=== PATIENT | female | born 1955 | race Caucasian/White ===

== ENCOUNTER → 2017-01-24 | Outpatient (CLI) | payer OTHER ==
[~2017-01-24] MED LIST: AMOX500C3 PO; ASPI325T39 PO; ATEN50TA8 PO; CHOL20007 PO; HYDC25 PO; LORA-741 PO; METO25TA3 PO
--- NOTE | 2017-01-27 12:45 | MAMMOGRAPHY REPORT ---
BILATERAL DIGITAL SCREENING MAMMOGRAM WITH CAD: 01/24/2017 CLINICAL HISTORY: Routine screening. Patient has no complaints. TECHNIQUE: Current study was also evaluated with a Computer Aided Detection (CAD) system. Bilatera l CC and MLO views were obtained. COMPARISON: Comparison is made to exams dated: 12/01/2015 mammogram, 10/17/2014 mammogram, 3 mammogram, 11/15/2011 mammogram - [facility], and 11/13/2004 mammogram. BREAST COMPOSITION: The tissue of both breasts is almost entirely fatty. FINDINGS: No suspicious masses, calcifications, or areas of architectural distortion are noted in e ither breast. There has been no significant interval change compared to prior exams. IMPRESSION: ACR BI-RADS CATEGORY 1: NEGATIVE There is no mammographic evidence of malignancy. A 1 year screening mammogram is recommended. The p atient will receive written notification of the results. Approximately 10% of breast cancers are not detected with mammography. A negative mammographic repor t should not delay biopsy if a clinically suggestive mass is present. Anuradha Carvalho M.D. ah/:01/24/2017 16:02:40 Senior Relationship Manager: Heather Yanez RT(R)(M), [facility] letter sent: Normal 1/2 BI-RADS Code: ACR BI-RADS Category 1: Negative
== END | disposition home or self-care (01) ==
LOC: C.MAMM 14:28
PROVIDERS: ATTEND Nurse Practitioner
DX: Z12.31 Encounter for screening mammogram for malignant neoplasm of breast (principal)

== ENCOUNTER → 2017-06-20 | Day surgery (SDC) | payer OTHER ==
[2017-06-09 11:21] VITALS: Ht 167.6 cm; Wt 115.9 kg
[~2017-06-20] VITALS: Ht 167.6 cm; Wt 115.9 kg
[~2017-06-20] MED LIST changes: -ATEN50TA8 PO; -HYDC25 PO; +LIDOCAINE HCL 2% 2 ML VIAL (20MG/ML) ONE; +PROPOFOL IV EMULSION 10 MG/ML 20 ML VIAL IV ONE; +SODIUM CHLORIDE 0.9% 500ML 500 ML IV ONE
--- NOTE | 2017-06-20 09:29 | Endo History and Physical ---
History & Physical Date of Service: Jun 20, 2017. Chief Complaint: History of colon polyps. Referring Physician: Uli History of Present Illness 61 yo CF who presents for colonoscopy secondary to history of colon polyps. Past Surgical History Hx Cardiac Surgery: No Hx Internal Defibrillator: No Hx Pacemaker: No Hx Abdominal Surgery: No Hx of Implantable Prosthesis: No Hx Post-Op Nausea and Vomiting: No Hx Cancer Surgery: No Hx Thoracic Surgery: No Hx Orthopedic: Yes (BLT TKA) Hx Urinary Tract Surgery: No Family History None Social History Smoking Status: Never Smoker Hx Substance Use: No Hx Alcohol Use: No Allergies Coded Allergies: Latex1 -Allergic Contact Dermititis (Verified Allergy, Mild, RASH, 06/20/17) Current Medications Reported Home Medications Medications Dose Route/Sig Max Daily Dose Days Date Category Toprol-Xl (Metoprolol Succinate) 25 Mg Tabcr 25 Mg PO QAM 06/09/17 Reported Vitamin D3 (Cholecalciferol) 2,000 Unit Tab 1 Tab PO QAM 06/09/17 Reported Ativan (Lorazepam) 0.5 Mg Tab 0.5 Mg PO HS PRN 06/09/17 Reported Aspirin Ec (Aspirin) 325 Mg Tab 325 Mg PO QAM 06/09/17 Reported Amoxil (Amoxicillin) 500 Mg Cap 4 Tabs PO UD PRN 06/09/17 Reported Vital Signs Weight (Kilograms): 115.91 Height (Feet): 5 Height (Inches): 6 Physical Exam General Appearance: WD/WN, no apparent distress Respiratory/Chest: Auscultation: breath sounds normal Cardiovascular: Heart Auscultation: RRR Abdomen: Bowel Sounds: normal Inspection & Palpation: soft, non-distended, no tenderness, guarding & rebound Assessment and Plan Assessment: 61 yo CF who presents for colonoscopy secondary to history of colon polyps. Plan: Proceed with colonoscopy.
--- NOTE | 2017-06-20 10:21 | Discharge Instructions ---
Endoscopy Patient Instructions Date / Procedure(s) Performed Jun 20, 2017. Colonoscopy Allergy Information Coded Allergies: Latex1 -Allergic Contact Dermititis (Verified Allergy, Mild, RASH, 06/20/17) Discharge Date / Findings Jun 20, 2017. Diverticulosis Internal hemorrhoids Medication Instructions Stopped Medication(s): Aspirin OK to resume all medications today as prescribed Reported Home Medications Medications Dose Route/Sig Max Daily Dose Days Date Category Toprol-Xl (Metoprolol Succinate) 25 Mg Tabcr 25 Mg PO QAM 06/09/17 Reported Vitamin D3 (Cholecalciferol) 2,000 Unit Tab 1 Tab PO QAM 06/09/17 Reported Ativan (Lorazepam) 0.5 Mg Tab 0.5 Mg PO HS PRN 06/09/17 Reported Aspirin Ec (Aspirin) 325 Mg Tab 325 Mg PO QAM 06/09/17 Reported Amoxil (Amoxicillin) 500 Mg Cap 4 Tabs PO UD PRN 06/09/17 Reported Provider Instructions Activity Restrictions - No exercising or heavy lifting for 24 hours. - Do not drink alcohol the day of the procedure. - Do not drive a car or operate machinery until the day after the procedure. - Do not make any important decisions or sign important papers in 24 hours after the procedure. Following Day: - Return to full activity which may include returning to work/school. Diet Start your diet with liquids and light foods (jello, soup, juice, toast). Then eat your usual diet if not nauseated. Treatment For Common After Affects For mild abdominal pain, bloating, or excessive gas: - Rest - Eat lightly - Lie on right side Follow-Up Information Follow-up with Eli Mcnally NP as scheduled Anesthesia Information What You Should Know You have had a procedure that required some medicine to reduce anxiety and discomfort. This treatment is called moderate sedation. After receiving the treatment, you may be sleepy, but you will be able to breathe on your own. The effects of the treatment may last for several hours. Follow these instructions along with Activity/Diet recommendations noted above: * Do NOT do anything where dizziness or clumsiness would be dangerous. * Rest quietly at home today, then you can be up and about tomorrow. * Have a responsible person stay with you the rest of today. * You may have had an I.V. today. If so, you may take the dressing off later today. Recommendations Call your doctor if: * Trouble breathing * Continuous vomiting for more than 24 hours * Temperature above 101 degrees * Severe abdominal pain or bloating * Pain not relieved by pain medicine ordered * There is increased drainage or redness from any incision * A large amount of rectal bleeding greater than 2-3 tablespoons. (If you had a polyp/s removed or have hemorrhoids, a small amount of blood - from the rectum is to be expected.) * You have any unanswered questions or concerns. IN THE EVENT OF A SERIOUS EMERGENCY, GO TO THE NEAREST EMERGENCY ROOM Your discharge instructions were prepared by provider Prieto Gordon. Patient Instructions Signature Page Padmini Colunga Patient (or Guardian) Signature/Date: I have read and understand the instructions given to me by my caregivers. Caregiver/RN/Doctor Signature/Date: The above-named patient and/or guardian has received patient instructions on this date. + Original Patient Signature Page (only) stays with chart. Please make copy for patient.
--- NOTE | 2017-06-20 10:28 | GI REPORT ---
Procedure Date: 06/20/2017 9:35 AM Procedure: Colonoscopy Indications: High risk colon cancer surveillance: Personal history of colonic polyps Medicines: Monitored Anesthesia Care Complications: No immediate complications. Estimated Blood Loss: Estimated blood loss: none. Procedure: Pre-Anesthesia Assessment: - Prior to the procedure, a History and Physical was performed, and patient medications and allergies were reviewed. The patient's tolerance of previous anesthesia was also reviewed. The risks and benefits of the procedure and the sedation options and risks were discussed with the patient. All questions were answered, and informed consent was obtained. Prior Anticoagulants: The patient has taken aspirin, last dose was 7 days prior to procedure. ASA Grade Assessment: II - A patient with mild systemic disease. After reviewing the risks and benefits, the patient was deemed in satisfactory condition to undergo the procedure. After I obtained informed consent, the scope was passed under direct vision. Throughout the procedure, the patient's blood pressure, pulse, and oxygen saturations were monitored continuously. The On-site loaner was introduced through the anus and advanced to the terminal ileum. The colonoscopy was performed without difficulty. The patient tolerated the procedure well. The quality of the bowel preparation was good. The terminal ileum, ileocecal valve, appendiceal orifice, and rectum were photographed. Findings: Multiple small-mouthed diverticula were found in the sigmoid colon. Non-bleeding internal hemorrhoids were found during retroflexion. The hemorrhoids were small. Impression: - Diverticulosis in the sigmoid colon. - Non-bleeding internal hemorrhoids. - No specimens collected. Recommendation: - Resume previous diet. - Continue present medications. - Repeat colonoscopy in 5 years for surveillance. - Return to primary care physician as previously scheduled. Prieto Gordon DO 06/20/2017 10:28:03 AM This report has been signed electronically. Note Initiated On: 06/20/2017 9:35 AM I attest to the content of the Intraoperative Record and orders documented therein, exceptions below
[2017-06-20 10:40] VITALS: BP 149/90; PULSE 69; O2SAT 96
--- NOTE | 2017-06-20 11:49 | Anesthesiology Progress Note ---
Anesthesia Post Op Note Date & Time Jun 20, 2017 at 11:49 Vital Signs Vital Signs Past 12 Hours Date Time Temp Pulse Resp B/P (MAP) Pulse Ox O2 Delivery O2 Flow Rate FiO2 06/20/17 10:40 69 20 149/90 (109) 96 Room Air 06/20/17 10:25 73 20 124/82 (96) 98 Room Air 06/20/17 10:10 72 16 116/84 (95) 98 Room Air 06/20/17 10:01 69 20 115/85 (95) 98 Room Air 06/20/17 09:27 36.2 88 20 176/92 (120) 98 Room Air Notes Mental Status: alert / awake / arousable, participated in evaluation Pt Amnestic to Procedure: Yes Nausea / Vomiting: adequately controlled Pain: adequately controlled Airway Patency, RR, SpO2: stable & adequate BP & HR: stable & adequate Hydration State: stable & adequate Anesthetic Complications: no major complications apparent
== END | disposition home or self-care (01) ==
LOC: C.GI 09:03
PROVIDERS: ATTEND Internal Medicine
DX: Z12.11 Encounter for screening for malignant neoplasm of colon (principal); K57.30 Diverticulosis of large intestine without perforation or abscess without bleeding; K64.8 Other hemorrhoids; Z86.010 Personal history of colon polyps; Z96.653 Presence of artificial knee joint, bilateral; Z79.82 Long term (current) use of aspirin

== ENCOUNTER → 2017-09-25 | Outpatient (CLI) | payer OTHER ==
[~2017-09-25] MED LIST changes: -LIDOCAINE HCL 2% 2 ML VIAL (20MG/ML) ONE; -PROPOFOL IV EMULSION 10 MG/ML 20 ML VIAL IV ONE; -SODIUM CHLORIDE 0.9% 500ML 500 ML IV ONE
[2017-09-25 12:58] LABS: ALT/SGPT 25 U/L (12-78); BLOOD UREA NITROGEN 27 mg/dl (7-18); BUN/CREATININE RATIO 33.8 (10-20); CALCIUM 9.3 mg/dl (8.5-10.1); CARBON DIOXIDE 29 mmol/L (21-32); CHLORIDE 106 mmol/L (98-107); CHOLESTEROL 218 mg/dl (0-200); CREATININE 0.79 mg/dl (0.60-1.20); GLUCOSE 98 mg/dl (70-99); POTASSIUM 3.9 mmol/L (3.5-5.1); SODIUM 139 mmol/L (136-145)
[2017-09-25 13:01] LABS: ALKALINE PHOSPHATASE 90 U/L (45-117); AST/SGOT 16 U/L (15-37); CHOLESTEROL/HDL RATIO 2.4; HDL CHOLESTEROL 92 mg/dl; LDL CHOLESTEROL CALCULATED 112 mg/dl; TRIGLYCERIDES 72 mg/dl (0-150); VERY LOW DENSITY LIPOPROT CALC 14 mg/dl
== END | disposition home or self-care (01) ==
LOC: C.LABPVFM 11:35
PROVIDERS: ATTEND Nurse Practitioner
DX: E55.9 Vitamin D deficiency, unspecified (principal); I10 Essential (primary) hypertension; E87.6 Hypokalemia

== ENCOUNTER 2025-06-24 16:41 | Inpatient (IN) ==
--- NOTE | 2025-06-24 17:13 | Emergency Department Note ---
Impression & Plan Atrial fibrillation with rapid ventricular response, Palpitations ED Provider Note NAME: VIKAS CARTY AGE: 69 SEX: F : 1955 ARRIVES VIA: Walk-In INFORMANT: Patient ED PROVIDER(S): Adilson Santa DO CHIEF COMPLAINT: Palpitations HPI: Patient is a 69-year-old female with a past medical history of CVA, dyslipidemia, A-fib who presents to the ER for feeling her heart rate racing. She takes apixaban and has not missed any doses. She notes this has been off and on since last . It has became more frequent on Friday and has been constant since this morning. She denies any headache or change in vision. No chest pain or shortness of breath. No nausea, vomiting or diarrhea. No dysuria, urgency or frequency. No other exacerbating or remitting factors. ADDITIONAL HISTORY OBTAINED: Per HPI Chronic Medical/Social Conditions Affecting Care: Per HPI PAST MEDICAL HISTORY:See Below PAST SURGICAL HISTORY:See Below FAMILY HISTORY:See Below SOCIAL HISTORY:See Below HOME MEDICATIONS:See Below ALLERGIES:See Below VITALS:See Below PHYSICAL EXAMINATION: GENERAL: Sitting up in bed, alert, well appearing, well nourished, no distress, non-toxic EYE EXAM: normal conjunctiva. PERRL and EOM's grossly intact. OROPHARYNX: no exudate, no erythema, lips, buccal mucosa, and tongue normal and mucous membranes are moist NECK: supple, no nuchal rigidity, no adenopathy, non-tender LUNGS: Clear to auscultation. Normal chest wall mechanics HEART: Tachycardic and irregular regular, S1 normal and S2 normal ABDOMEN: abdomen soft, non-tender, normo-active bowel sounds, no masses, no rebound or guarding. UPPER EXTREMITIES: upper extremities are grossly normal. LOWER EXTREMITIES: No pitting edema. NEURO EXAM: Normal sensorium, cranial nerves II-XII grossly intact, normal speech, no gross weakness of arms, no gross weakness of legs. MEDICAL DECISION MAKING: Patient is a 69-year-old female who presents to the ER for the above-stated complaint. IV was established and blood work was obtained. Labs show no significant leukocytosis or anemia. BMP along with LFTs bilirubin and lipase is unremarkable. Troponin is negative. Chest x-ray is unremarkable. EKG was consistent with A-fib with RVR. Heart rate was in the 130s. Patient was given Cardizem drip and bolus. Heart rate trended down. Patient did feel better. Discussed case with the hospitalist for further evaluation management treatment. Consults/Care Managements Discussions: Per [facility] Triage Nursing notes reviewed. Limited review of prior medical records performed Vital Signs: reviewed and remarkable for tachy and HTN Differential diagnosis: Cardiac ischemia, aortic dissection, pulmonary embolism, pneumothorax, pneumonia, pericarditis, myocarditis, esophageal rupture, GERD, cholecystitis, pancreatitis, musculoskeletal, as well as other pathologies. ER treatment provided: See below Diagnostics interpreted by me include EKG and cardiac monitoring as listed below: -Cardiac Monitoring: An order was placed for continuous cardiac monitoring. The monitor shows a rate of 130 with A-fib rhythm. -ECG: A-fib rate of 133 Left axis No PVCs QTc 467 -Laboratory studies:Interpreted by me as stated above in MDM and shown below. Imaging studies: Xrays: As interpreted by me: Portable AP upright 1 view of the chest shows no focal M-Trate CTs show: none Procedures:none Critical Care: I have personally spent 33 minutes of critical care time in the direct management of this patient. This includes bedside care, interpretation of diagnostic studies, and testing, discussion with consultants, patient, and family members, and other required patient management activities. This 33 minutes is in excess of all separately billable procedures. Past Med/Surg History Problem List (Updated 06/24/25 @ 21:41 by Adilson Santa DO) Palpitations (Acute) Atrial fibrillation with rapid ventricular response (Acute) Dyslipidemia Cerebrovascular accident (CVA) Carotid artery plaque Mitral regurgitation Atrial fibrillation, permanent Tick bite (Acute) Cardiomyopathy Atrial fibrillation Atrial flutter Routine health maintenance (Chronic) Encounter for pre-operative examination Anxiety Diverticulosis Essential hypertension (Chronic) History of total knee arthroplasty Hypokalemia Left upper quadrant abdominal tenderness Low back pain Low vitamin D level (Chronic) Paroxysmal atrial fibrillation (Chronic) Presented acutely to PCP on 04/13 with MOYA, EKG done in office showed Afib RVR @ 160bpm. Sent to ED, controlled with Diltiazem and discharged on Dilt and Eliquis. At subsequent cardio office visits, Dilt found to be ineffective, pt still in Afib RVR. 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, EF 40-45% Hyperlipidemia Surgical History S/P cataract surgery right History of cardiac radiofrequency ablation for Afib Hx of LASIK History of colonoscopy History of bilateral knee replacement History of tonsillectomy Family History Mother Hypertension Father Diabetes Other No family history of adverse response to anesthesia Social History Smoking Status: Never smoker Second Hand Exposure: No; Do You Dip or Chew Tobacco: No; Hx Alcohol Use: No Hx Substance Use: No Preferred Language: [place] Citizen Communication Ability: Effective Medicinal Chemist Required: No Beliefs That Will Affect Care: None Current Living Situation: Spouse Feels Safe at Home: Yes Assistive Devices: None Allergies Allergies Allergy/AdvReac Type Severity Reaction Status Date / Time soap Allergy Intermediate Elvira dish Unverified 06/24/25 18:52 liquid causes itchy rash [id number] Reductase AdvReac Severe Muscle Pain Unverified 06/24/25 18:52 Inhibitor Home Meds Home Medications Medication Instructions Recorded Confirmed cholecalciferol (vitamin D3) 125 5,000 unit PO DAILY #100 caps 04/13/19 06/24/25 mcg (5,000 unit) capsule diltiazem HCl 120 mg 120 mg PO QAM 09/30/24 06/24/25 capsule,extended release 24 hr diltiazem HCl 360 mg 360 mg PO QAM 09/30/24 06/24/25 capsule,extended release 24 hr (Cardizem CD) Previous Rx's Medication Instructions Recorded apixaban 5 mg tablet (Eliquis) 5 mg PO BID #180 tabs 03/23/25 metoprolol succinate 50 mg 100 mg (2 x 50 mg) PO QPM #180 tabs 03/23/25 tablet,extended release 24 hr Results & Data (ED) Vital Signs Vital Signs - 24 hr 06/24/25 16:44 06/24/25 16:59 06/24/25 17:48 Temperature 36.4 C L Temperature Source Oral Pulse Rate 120 H 133 H Pulse Rate [Apical] Pulse Rhythm Regular Pulse Strength Normal Respiratory Rate 20 Respiratory Effort / Characteristics Non-Labored Spontaneous Respiratory Depth Normal Blood Pressure 146/85 H Blood Pressure [Right Arm] Blood Pressure Mean 105 Blood Pressure Mean [Right Arm] Pulse Oximetry 96 94 Oxygen Delivery Method Room Air Room Air Sepsis Recent Fever Within 48 Hours No Sepsis New/Unexplained Change in Mental Status N/A Sepsis Action Taken by Nursing No Action Required 06/24/25 18:34 Temperature Temperature Source Pulse Rate Pulse Rate [Apical] 79 Pulse Rhythm Pulse Strength Respiratory Rate 18 Respiratory Effort / Characteristics Respiratory Depth Blood Pressure Blood Pressure [Right Arm] 134/87 Blood Pressure Mean Blood Pressure Mean [Right Arm] 102 Pulse Oximetry 94 Oxygen Delivery Method Room Air Sepsis Recent Fever Within 48 Hours Sepsis New/Unexplained Change in Mental Status Sepsis Action Taken by Nursing Laboratory Data 06/24/25 17:11 06/24/25 17:11 Lab Results 06/24/25 Range/Units 17:11 WBC 8.69 (4.8-10.8) K/ul RBC 4.92 (4.20-5.40) M/uL Hgb 14.6 (12.0-16.0) g/dl Hct 43.1 (37.0-47.0) % MCV 87.6 (80.0-100.0) fL MCH 29.7 (25.0-34.0) pg MCHC 33.9 (32.0-36.0) g/dL RDW Std Deviation 42.9 (36.4-46.3) fL RDW Coeff of Davina 13.3 (11.5-14.5) % Plt Count 225 (130-400) K/uL MPV 11.0 (9.4-12.4) fL Immature Gran % (Auto) 0.3 % Neut % (Auto) 69.2 % Lymph % (Auto) 20.6 % [place] % (Auto) 8.2 % Eos % (Auto) 1.0 % Baso % (Auto) 0.7 % Neut # (Auto) 6.01 (1.40-6.50) K/uL Lymph # (Auto) 1.79 (1.20-3.40) K/uL [place] # (Auto) 0.71 H (0.11-0.59) K/uL Eos # (Auto) 0.09 (0.00-0.50) K/uL Baso # (Auto) 0.06 (0.00-0.20) K/uL Immature Gran # (Auto) 0.03 (0.01-0.20) K/uL Sodium 135 L (136-145) mmol/L Potassium 3.9 (3.5-5.1) mmol/L Chloride 102 (98-107) mmol/L Carbon Dioxide 25 (21-32) mmol/L Anion Gap 8 (3-11) BUN 28 H (6-23) mg/dl Creatinine 1.14 (0.6-1.2) mg/dl Est Cr Clr Drug Dosing 64.8 ml/min eGFR 52.11 BUN/Creatinine Ratio 24.6 H (10-20) Glucose 114 H (70-99(Fasting)) mg/dl Calcium 9.6 (8.6-10.3) mg/dl Magnesium 2.0 (1.7-2.4) mg/dl Total Bilirubin 0.4 (0.2-1.0) mg/dl AST 20 (13-39) U/L ALT 18 (7-52) U/L Alkaline Phosphatase 99 (34-104) U/L Troponin I High Sens 3.5 (0-14) pg/ml Total Protein 7.7 (6.0-8.3) gm/dl Albumin 3.9 (3.4-5.0) gm/dl Globulin 3.8 (2.5-4.0) gm/dl Albumin/Globulin Ratio 1.0 (0.9-2) Lipase 13 (11-82) U/L TSH 1.281 (0.300-4.500) uIu/ml Administered Medications Diltiazem HCl 125 mg/ Dextrose 125 mls @ 5 mls/hr IV .Q24H [facility]; Protocol Stop: 07/24/25 17:14 Last Admin: 06/24/25 17:40 Dose: 5 mg/hr, 5 mls/hr Documented By: JESSA Co-signed By: AVM Discontinued Medications Diltiazem HCl (Diltiazem Hcl 5 Mg/Ml 5 Ml Vial) 10 mg IV NOW STA Stop: 06/24/25 17:12 Last Admin: 06/24/25 17:21 Dose: 10 mg Documented By: JESSA Co-signed By: AMPARO Imaging Data Radiologist's Impression: Chest X-Ray 06/24/25 16:48 Chest radiograph, one view History: Chest pain Comparison: 04/13/2019 Findings: Single AP view of the chest performed. No focal consolidation or pleural effusion. No pneumothorax. The cardiomediastinal silhouette is within normal limits. Normal pulmonary vascularity. No evidence for lymphadenopathy. No visualized bony or soft tissue abnormality. Impression: Normal chest radiograph Electronically signed by Win Weiner 06-24-2025 6:07 PM Discharge Plan Visit Data Chief Complaint: Cardiac Assessment Stated Complaint: A-FIB ED Provider: Adilson Santa Discharge Problem: Atrial fibrillation with rapid ventricular response, Palpitations Patient Disposition: Admitted As Inpatient Condition: Serious Discharge Instructions Interventions: ED Discharge Assessment Last Done: 06/24/25 21:04
[2025-06-24 17:31] LABS: Hematocrit (blood only) 43.1 % (37.0-47.0); Hemoglobin 14.6 g/dl (12.0-16.0); Immature Granulocytes # (auto) 0.03 K/uL (0.01-0.20); Immature Granulocytes % (auto) 0.3 %; Mean Corpuscular Hemoglobin 29.7 pg (25.0-34.0); Mean Corpuscular Volume 87.6 fL (80.0-100.0); Platelet Count 225 K/uL (130-400); RDW Standard Deviation 42.9 fL (36.4-46.3); Red Blood Count 4.92 M/uL (4.20-5.40); White Blood Count 8.69 K/ul (4.8-10.8)
[2025-06-24 17:49] LABS: Alanine Aminotransferase 18.0 U/L (7-52); Albumin Globulin Ratio 1.0 (0.9-2); Alkaline Phosphatase 99.0 U/L (34-104); Anion Gap 8.0 (3-11); Bilirubin,Total 0.4 mg/dl (0.2-1.0); Blood Urea Nitrogen 28.0 mg/dl (6-23); Calcium 9.6 mg/dl (8.6-10.3); Carbon Dioxide 25.0 mmol/L (21-32); Chloride 102.0 mmol/L (98-107); Creatinine Clr Calc Pharmacy 64.8 ml/min; Globulin 3.8 gm/dl (2.5-4.0); Glucose 114.0 mg/dl (70-99(Fasting)); Lipase 13.0 U/L (11-82); Potassium 3.9 mmol/L (3.5-5.1); Sodium 135.0 mmol/L (136-145); Total Protein 7.7 gm/dl (6.0-8.3)
--- NOTE | 2025-06-24 18:08 | XRay Report ---
Chest radiograph, one view History: Chest pain Comparison: 04/13/2019 Findings: Single AP view of the chest performed. No focal consolidation or pleural effusion. No pneumothorax. The cardiomediastinal silhouette is within normal limits. Normal pulmonary vascularity. No evidence for lymphadenopathy. No visualized bony or soft tissue abnormality. Impression: Normal chest radiograph Electronically signed by Win Weiner 06-24-2025 6:07 PM
--- NOTE | 2025-06-24 18:36 | History & Physical Report ---
Date of Service June 24, 2025 Assessment & Plan (1) Atrial fibrillation with rapid ventricular response: Plan: Patient is 69-year-old female with PMH permanent atrial fibrillation, CVA, anticoagulated on Eliquis, obesity presented to ER with c/o palpitations x 1 week. Patient reports 8 days ago started with palpitations and shortness of breath after exertion of walking. In ER Afebrile, P: 120, R: 20, BP 146/85, 96% on room air in ER given diltiazem bolus and started on drip with improvement of heart rate to high 90's-1 teens Initial troponin negative. K: 3.9. Magnesium pending CXR: no infiltrate. Continue home Eliquis Hold home cardizem while on cardizem drip. Continue home metoprolol for now. Consider further medication adjustments. Pt mentions does not like metoprolol as makes her feel fatigued. Consult cardiology. Patient follows with [place] [facility] #CVA Continue Eliquis DVT Prophylaxis On Eliquis Admit PCU Full Code as per discussion with pt Follows with Dr Jordan for routine care Pt was seen and care coordinated with Dr Valiente See addendum I spent a total of 66 minutes reviewing notes, outpatient records, labs, medication, coordinating, documenting and providing care for this patient excluding time spent in the performance of separately billed services and excluding time spent by another provider/QHP. History of Present Illness Chief Complaint: palpitations Primary Care Provider: Jayshree Jordan DO Patient is 69-year-old female with PMH permanent atrial fibrillation, CVA, anticoagulated on Eliquis, obesity presented to ER with c/o palpitations x 1 week. Patient reports 8 days ago started with palpitations and shortness of breath after exertion of walking. Patient reports taking an extra metoprolol and seemed to "calm her heart rate" but palpitations recurred again and have been persistent. She states did not take any additional metoprolol. She denies missed doses of medications. Seen at PCP office today and referred to ER for atrial fibrillation with reported pulse 112 and BP 138/86. Denies fever/chills, diaphoresis, N/V/D/C, HICKS, dizziness, syncope, vision changes, neck pain, CP, SOB, orthopnea, cough, sore throat, rhinorrhea, abdominal pain, paresthesias, weakness, extremity weakness, extremity edema, rashes, urinary symptoms. Allergies Allergy/AdvReac Type Severity Reaction Status Date / Time soap Allergy Intermediate Elvira dish Unverified 06/24/25 18:52 liquid causes itchy rash Kvpeqhs-BED-OdV Reductase AdvReac Severe Muscle Pain Unverified 06/24/25 18:52 Inhibitor Home Medications Medication Instructions Recorded Confirmed Type cholecalciferol (vitamin D3) 125 5,000 unit PO DAILY #100 caps 04/13/19 06/24/25 History mcg (5,000 unit) capsule diltiazem HCl 120 mg 120 mg PO QAM 09/30/24 06/24/25 History capsule,extended release 24 hr diltiazem HCl 360 mg 360 mg PO QAM 09/30/24 06/24/25 History capsule,extended release 24 hr (Cardizem CD) apixaban 5 mg tablet (Eliquis) 5 mg PO BID #180 tabs 03/23/25 06/24/25 Rx metoprolol succinate 50 mg 100 mg (2 x 50 mg) PO QPM #180 tabs 03/23/25 06/24/25 Rx tablet,extended release 24 hr Past Med/Surg History Problem List Dyslipidemia Cerebrovascular accident (CVA) Carotid artery plaque Mitral regurgitation Atrial fibrillation, permanent Tick bite (Acute) Cardiomyopathy Atrial fibrillation Atrial flutter Routine health maintenance (Chronic) Encounter for pre-operative examination Anxiety Diverticulosis Essential hypertension (Chronic) History of total knee arthroplasty Hypokalemia Left upper quadrant abdominal tenderness Low back pain Low vitamin D level (Chronic) Paroxysmal atrial fibrillation (Chronic) Presented acutely to PCP on 04/13 with MOYA, EKG done in office showed Afib RVR @ 160bpm. Sent to ED, controlled with Diltiazem and discharged on Dilt and Eliquis. At subsequent cardio office visits, Dilt found to be ineffective, pt still in Afib RVR. 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, EF 40-45% Hyperlipidemia Surgical History S/P cataract surgery right History of cardiac radiofrequency ablation for Afib Hx of LASIK History of colonoscopy History of bilateral knee replacement History of tonsillectomy Family History Mother Hypertension Father Diabetes Other No family history of adverse response to anesthesia Social History Smoking Status: Never smoker Second Hand Exposure: No; Do You Dip or Chew Tobacco: No; Hx Alcohol Use: No Hx Substance Use: No Preferred Language: Canadian Communication Ability: Effective Avionics Supervisor Required: No Beliefs That Will Affect Care: None Current Living Situation: Spouse Feels Safe at Home: Yes Assistive Devices: None Review of Systems Review of Systems: All systems reviewed & are unremarkable except as noted in HPI & below Physical Exam Physical Exam: General: no distress, obese female Head: normocephalic, atraumatic Eyes: conjunctiva non-injected, anicteric ENT: normal inspection external ears, nose, mucous membranes moist Neck: supple, trachea midline, non-tender Lungs: clear, no respiratory distress, no wheezing/rhonchi/rales CV: irregularly irregular, rate 108, no pitting pretibial edema Abd: normal BS, soft, non-tender Ext: no cyanosis, no calf tenderness Neuro: A&O x 3, no focal deficits noted, normal affect Skin: warm, dry Results & Data Results & Data Vital Signs (Past 12 Hours) Vital Signs Temp Pulse Resp BP Pulse Ox O2 Del Method 06/24/25 17:48 133 H 06/24/25 16:59 94 Room Air 06/24/25 16:44 36.4 C L 120 H 20 146/85 H 96 Room Air Laboratory Results Short CBC 06/24/25 Range/Units 17:11 WBC 8.69 (4.8-10.8) K/ul Hgb 14.6 (12.0-16.0) g/dl Hct 43.1 (37.0-47.0) % Plt Count 225 (130-400) K/uL BMP 06/24/25 17:11 Sodium 135 L Potassium 3.9 Chloride 102 Carbon Dioxide 25 BUN 28 H Creatinine 1.14 Glucose 114 H Calcium 9.6 Liver Function 06/24/25 Range/Units 17:11 Total Bilirubin 0.4 (0.2-1.0) mg/dl AST 20 (13-39) U/L ALT 18 (7-52) U/L Alkaline Phosphatase 99 (34-104) U/L Albumin 3.9 (3.4-5.0) gm/dl Diagnostic Findings Chest X-Ray 06/24/25 16:48 Chest radiograph, one view History: Chest pain Comparison: 04/13/2019 Findings: Single AP view of the chest performed. No focal consolidation or pleural effusion. No pneumothorax. The cardiomediastinal silhouette is within normal limits. Normal pulmonary vascularity. No evidence for lymphadenopathy. No visualized bony or soft tissue abnormality. Impression: Normal chest radiograph Electronically signed by Win Weiner 06-24-2025 6:07 PM Supervising Physician Co-Signing Physician Notes 69-year-old lady with history of A-fib on Eliquis, CVA, obesity presents to the ED with complaint of palpitation. Patient has been dealing with intermittent palpitation since about a week with a brief relief of metoprolol over the weekend. She was seen at PCP office today and referred to the ED. In the ED patient was started on diltiazem, currently heart rate under control, continue with Cardizem drip per protocol, continue home metoprolol. Hold home cardizem. Cardio consult Labs and imaging fairly WNL On exam: Patient in A-fib, heart rate in 100, no BLE edema, rest of the examination as above. I have seen and examined the patient and have discussed the case with the provider above. I agree with the assessment and plan as stated. Time spent independently: 18 minutes
[2025-06-24 18:56] LABS: Magnesium 2.0 mg/dl (1.7-2.4)
[2025-06-24 19:12] LABS: Thyroid Stimulating Hormone 1.281 uIu/ml (0.300-4.500)
[2025-06-24] MEDS ORDERED: ACETAMINOPHEN 325 MG TAB PO PRN (21:19)
[2025-06-24] MEDS ORDERED: POLYETHYLENE (MIRALAX) 17 GM PACK PO PRN (21:19)
[2025-06-24] MEDS ORDERED: ONDANSETRON INJ 2 MG/ML 2 ML VIAL IV PRN (21:19)
[2025-06-24] MEDS: APIXABAN 5 MG TABLET PO SCH (22:23)
[2025-06-24] MEDS: METOPROLOL SUCC 50MG EXT REL TAB PO SCH (22:26)
[2025-06-24 23:04] VITALS: RESP 18
[2025-06-25 06:25] LABS: Hematocrit (blood only) 41.5 % (37.0-47.0); Hemoglobin 13.6 g/dl (12.0-16.0); Mean Corpuscular Hemoglobin 29.1 pg (25.0-34.0); Mean Corpuscular Volume 88.7 fL (80.0-100.0); Platelet Count 190 K/uL (130-400); RDW Standard Deviation 43.6 fL (36.4-46.3); Red Blood Count 4.68 M/uL (4.20-5.40); White Blood Count 6.71 K/ul (4.8-10.8)
[2025-06-25 06:48] LABS: Anion Gap 8.0 (3-11); Blood Urea Nitrogen 21.0 mg/dl (6-23); Calcium 9.1 mg/dl (8.6-10.3); Carbon Dioxide 26.0 mmol/L (21-32); Chloride 106.0 mmol/L (98-107); Creatinine Clr Calc Pharmacy 85.8 ml/min; Glucose 94.0 mg/dl (70-99(Fasting)); Potassium 3.7 mmol/L (3.5-5.1); Sodium 140.0 mmol/L (136-145)
[2025-06-25] MEDS: STAT IV Infusion **Titration per Protocol STA (08:29)
--- NOTE | 2025-06-25 09:57 | XCELERA ---
[id number] \\[email or web address]\[id number]
--- NOTE | 2025-06-25 11:15 | Cardiology Consultation ---
Date of Consultation June 25, 2025 Assessment & Plan (1) Atrial fibrillation with rapid ventricular response: -Ventricular response now well-controlled on intravenous diltiazem and oral metoprolol succinate. -Would convert intravenous diltiazem back to her usual outpatient oral dose. -Consider increasing metoprolol succinate to 150 mg daily. -Consider hospital discharge later today. - She has a scheduled appointment with iWllam Covarrubias on June 30. (2) Essential hypertension: -Adequate control on current regimen. (3) Mitral regurgitation: -Moderate in degree on current echocardiogram. History of Present Illness Attending Physician: Kike Nguyễn MD History of Present Illness Mrs. Colunga is a 69-year-old female admitted yesterday with atrial fibrillation and rapid ventricular response. This consultation was ordered to assist in her cardiac management. Of note, the patient typically follows with [facility] Galloway and Dr. Villa. The patient was in usual state of health until approximately 1 week prior to presentation. She began to note intermittent palpitations and some exertional dyspnea. At no time did she experience chest discomfort. She presented to her primary care office yesterday and was noted to be in atrial fibrillation with rapid ventricular response. She was sent to the emergency room for further care. She does carry a history of permanent atrial fibrillation and has been maintained on rate control and long-term anticoagulation. The patient claims to be compliant with her rate controlling medications. No recent illnesses. Currently, patient is resting comfortably in bed without complaints. Past medical and surgical history 1. Hypertension 2. Hypercholesterolemia 3. Permanent atrial fibrillation 4. Tachycardic induced cardiomyopathy 5. Right MCA CVAMarch 2022, noncompliance with anticoagulation 6. Diverticulosis 7. Anxiety 8. Vitamin D deficiency 9. DJD 10. Bilateral TKR 11. Tonsillectomy 12. Right intraocular lens implant Social history and lives with her No tobacco Occasional alcohol Family history Noncontributory Review of systems A 10 point review of system was undertaken and negative except that described above. Allergies Allergy/AdvReac Type Severity Reaction Status Date / Time soap Allergy Intermediate Elvira dish Unverified 06/24/25 18:52 liquid causes itchy rash Pxbbkec-[id number]-BuA Reductase AdvReac Severe Muscle Pain Unverified 06/24/25 18:52 Inhibitor Home Medications Medication Instructions Recorded Confirmed Type cholecalciferol (vitamin D3) 125 5,000 unit PO DAILY #100 caps 04/13/19 06/24/25 History mcg (5,000 unit) capsule diltiazem HCl 120 mg 120 mg PO QAM 09/30/24 06/24/25 History capsule,extended release 24 hr diltiazem HCl 360 mg 360 mg PO QAM 09/30/24 06/24/25 History capsule,extended release 24 hr (Cardizem CD) apixaban 5 mg tablet (Eliquis) 5 mg PO BID #180 tabs 03/23/25 06/24/25 Rx metoprolol succinate 50 mg 100 mg (2 x 50 mg) PO QPM #180 tabs 03/23/25 06/24/25 Rx tablet,extended release 24 hr Patient History Medical History Hx of skin malignancy removed Diverticular disease History of stroke December 2022 > due to taking Eliquis/ibuprofen at same time per pt, resolved in the ambulance on way to hospital, no residual effects History of COVID-07 Oct 2020 History of anxiety Dyslipidemia Atrial fibrillation no pacer, med controlled > follows with Kihedy ZapienSatish History of cardioversion 05/28/19 Osteoarthritis 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, EF 40-45% Hyperlipidemia Surgical History S/P cataract surgery right History of cardiac radiofrequency ablation for Afib Hx of LASIK History of colonoscopy History of bilateral knee replacement History of tonsillectomy Family History Mother Hypertension Father Diabetes Other No family history of adverse response to anesthesia Social History Smoking Status: Never smoker Second Hand Exposure: No; Do You Dip or Chew Tobacco: No; Tobacco Cessation Education Requested by Patient: No Hx Alcohol Use: No Hx Substance Use: No Preferred Language: Comoran Communication Ability: Effective Pct Required: No Beliefs That Will Affect Care: None Current Living Situation: Spouse Other Information That Helps Us Care for You: No Feels Safe at Home: Yes Safety Concerns: Feels Safe At This Time Assistive Devices: None Physical Exam Physical Exam: In general this is a well-developed well-nourished white female in no acute distress. HEENT exam is negative. Neck reveals normal carotid upstrokes without bruits. Jugular venous pressure is flat at 90. There is no thyromegaly. Cardiovascular exam reveals an irregularly irregular rhythm with distant heart sounds. No obvious murmurs. Lungs are clear without rales, rhonchi, or wheezes. Abdomen is soft without bruits. Extremities reveal intact radial artery and posterior tibial pulses bilaterally. There is no peripheral edema. Results & Data Vital Signs (Past 12 Hours) Vital Signs Temp Pulse Pulse Resp BP Pulse Ox O2 Del Method 06/25/25 08:28 77 06/25/25 08:02 36.4 C L 73 18 121/84 96 Room Air 06/25/25 03:08 36.4 C L 74 18 134/95 95 Room Air Laboratory Results CBC and electrolytes are unremarkable. Magnesium level normal at 2.0. TSH is normal at 1.28. High-sensitivity troponin normal at 3.5. Diagnostic Findings Echocardiogram notes low normal systolic function with an ejection fraction of 45 to 50%. No wall motion abnormalities. Moderate mitral digitation. Compared with the study performed in December 2022, no significant change. EKG notes atrial fibrillation with rapid ventricular response. There is poor R wave progression across anterior precordium. PG Care Time/CCT Total # of Minutes Spent Total Time Spent with Patient: Total time spent is greater than 50% in coordination of care (as documented) at patient's floor/unit and/or counseling patient: Coding Level of Care Code 12943 INT INP/OBS CARE 3/75MIN Diagnoses Atrial fibrillation with rapid ventricular response I48.91 Essential hypertension I10 Nonrheumatic mitral valve regurgitation I34.0 Cardiac valve disease etiology: nonrheumatic (3) Mitral regurgitation Cardiac valve disease etiology: nonrheumatic Qualified Code(s): I34.0 - Nonrheumatic mitral (valve) insufficiency
[2025-06-25 11:34] VITALS: BP 136/97; PULSE 97; TEMP 97.3; O2SAT 94
[2025-06-25] MEDS ORDERED: [UNRECOGNIZED DRUG - OTHER] PO SCH (12:00)
[2025-06-25] MEDS ORDERED: DILTIAZEM HCL 360 MG PO SCH (12:00)
--- NOTE | 2025-06-25 12:09 | Discharge Summary ---
Discharge Summary Date of Service June 25, 2025 Principal Dx & Hospital Course #1 = Principal Diagnosis (1) Atrial fibrillation with rapid ventricular response: Patient is 69-year-old female with PMH permanent atrial fibrillation, CVA, anticoagulated on Eliquis, obesity presented to ER with c/o palpitations x 1 week. Patient reports 8 days ago started with palpitations and shortness of breath after exertion of walking. In ER Afebrile, P: 120, R: 20, BP 146/85, 96% on room air in ER given diltiazem bolus and started on drip with improvement of heart rate to high 90's-1 teens Initial troponin negative. K: 3.9. Magnesium pending CXR: no infiltrate. Continue home Eliquis Hold home cardizem while on cardizem drip. Continue home metoprolol for now. Consider further medication adjustments. Pt mentions does not like metoprolol as makes her feel fatigued. Consult cardiology. Patient follows with [place] [facility]ology #CVA Continue Eliquis DVT Prophylaxis On Eliquis Admit PCU Full Code as per discussion with pt Follows with Dr Jordan for routine care Pt was seen and care coordinated with Dr Valiente See addendum I spent a total of 66 minutes reviewing notes, outpatient records, labs, medication, coordinating, documenting and providing care for this patient excluding time spent in the performance of separately billed services and excluding time spent by another provider/QHP. Admission HPI Per Admitting Provider Patient is 69-year-old female with PMH permanent atrial fibrillation, CVA, anticoagulated on Eliquis, obesity presented to ER with c/o palpitations x 1 week. Patient reports 8 days ago started with palpitations and shortness of breath after exertion of walking. Patient reports taking an extra metoprolol and seemed to "calm her heart rate" but palpitations recurred again and have been persistent. She states did not take any additional metoprolol. She denies missed doses of medications. Seen at PCP office today and referred to ER for atrial fibrillation with reported pulse 112 and BP 138/86. Denies fever/chills, diaphoresis, N/V/D/C, HICKS, dizziness, syncope, vision changes, neck pain, CP, SOB, orthopnea, cough, sore throat, rhinorrhea, abdominal pain, paresthesias, weakness, extremity weakness, extremity edema, rashes, urinary symptoms. Updated Medication List Medication Instructions Recorded Confirmed Type cholecalciferol (vitamin D3) 125 5,000 unit PO DAILY #100 caps 04/13/19 06/24/25 History mcg (5,000 unit) capsule diltiazem HCl 120 mg 120 mg PO QAM 09/30/24 06/24/25 History capsule,extended release 24 hr diltiazem HCl 360 mg 360 mg PO QAM 09/30/24 06/24/25 History capsule,extended release 24 hr (Cardizem CD) apixaban 5 mg tablet (Eliquis) 5 mg PO BID #180 tabs 03/23/25 06/24/25 Rx metoprolol succinate 50 mg 100 mg (2 x 50 mg) PO QPM #180 tabs 03/23/25 06/24/25 Rx tablet,extended release 24 hr magnesium oxide 400 mg PO DAILY 30 days #30 tabs 06/25/25 Rx metoprolol succinate 50 mg 150 mg (3 x 50 mg) PO DAILY 30 06/25/25 Rx tablet,extended release 24 hr days #90 tabs (Toprol XL) potassium chloride 20 mEq 20 meq PO DAILY 30 days #30 tabs 06/25/25 Rx tablet,extended release Hospital Stay Data Consultations 06/24/25 18:36 ED Decision to Admit Stat 06/24/25 21:19 Consult Cardiology Routine Pending Results Patient Have Any Pending Studies at Discharge: No Discharge Instructions Given to Patient (Per Discharging Provider) PLEASE REFER TO YOUR NEW MEDICATION LIST AND FOLLOW INSTRUCTIONS CAREFULLY. YOUR NEW MEDICATIONS INCLUDE: Increase Metoprolol XL to 150mg daily. PLEASE CALL YOUR PRIMARY CARE PHYSICIAN OR RETURN TO THE ER IF WITH WORSENING OF SYMPTOMS, INCLUDING palpitations, chest pain, shortness of breath, dizziness, etc FOLLOW UP WITH PRIMARY CARE PHYSICIAN IN 1 WEEK. FOLLOW UP WITH NUCLEAR FUEL PROCESSING TECHNICIAN IN 1 WEEK.
--- NOTE | 2025-06-25 12:30 | Electrocardiogram Report ---
Test Reason : Blood Pressure : */* mmHG Vent. Rate : 133 BPM Atrial Rate : * BPM P-R Int : * ms QRS Dur : 96 ms QT Int : 314 ms P-R-T Axes : * -9 -16 degrees QTcB Int : 467 ms Atrial fibrillation with rapid ventricular response Inferior infarct , age undetermined Poor R wave progression, consider anterior [place] vs. lead placement vs. LVH Abnormal ECG When compared with ECG of 03-Jan-2023 08:32, Inferior infarct is now Present Questionable change in initial forces of Septal leads Inverted T waves have replaced nonspecific T wave abnormality in Inferior leads Confirmed by Milton York ([id number]) on 06/25/2025 12:30:02 PM Referred By: REFERRED SELF Confirmed By: Milton York
[2025-06-25] MEDS: POTASSIUM CHLORIDE CRTAB 20 MEQ TABCR PO STA (12:36)
== END 2025-06-25 14:50 | disposition home or self-care (01) | DRG 309 ==
LOC: ED 16:41 → SUATTDRO 18:50 → 4W 18:50